=== PATIENT | female | born 1975 | race Caucasian/White ===

== ENCOUNTER 2017-05-15 16:21 | Emergency (ER) | payer BC ==
[2017-05-15] MEDS ORDERED: HYDROmorphone 0.5 MG/0.5 ML SYRINGE IVPUSH ONE (17:24)
[2017-05-15] MEDS ORDERED: Ondansetron 4 MG/2 ML SDV IVPUSH ONE (17:24)
[2017-05-15] MEDS ORDERED: Sodium Chloride 0.9% 1,000 ML IV ONE (17:24)
--- NOTE | 2017-05-15 17:25 | EDM.PDOC ---
ED HPI GENERAL MEDICAL PROBLEM - General Chief Complaint: Abdominal Pain Stated Complaint: INTENSE ABDOMINAL PAIN Time Seen by Provider: 05/15/17 17:24 Source of Information: Reports: Patient - History of Present Illness INITIAL COMMENTS - FREE TEXT/NARRATIVE: Patient is sent here today from the clinic for acute epigastric pain since earlier today. Patient states she does have chronic heartburn but this is nothing like her typical heartburn. She denies any chest pain. She does have some nausea, denies any vomiting or diarrhea. Patient denies any change in her diet. Bowel movements have been regular, she did have one today. Patient notes that she is currently also being treated for hypertriglyceridemia. She drinks alcohol one or 2 times a week 2 or 3 drinks at a sitting. She reports a fairly healthy diet, she does have very limited fatty and fried foods due to her elevated triglycerides. Abdominal Pain Score (Numeric/FACES): 5 - Related Data Allergies Allergy/AdvReac Type Severity Reaction Status Date / Time NSAIDS (Non-Steroidal Allergy Itching Verified 05/15/17 16:34 Anti-Inflamma Sulfa (Sulfonamide Allergy Rash Verified 05/15/17 16:34 Antibiotics) Home Meds: Home Meds Gemfibrozil [Lopid] 600 mg PO BIDAC 05/15/17 [History] hydrOXYzine HCl [Atarax] 10 mg PO DAILY 05/15/17 [History] traMADol [Ultram] 50 mg PO Q6H PRN 05/15/17 [History] Past Medical History Cardiovascular History: Reports: High Cholesterol, Hypertension Social & Family History - Tobacco Use Smoking Status *Q: Current Every Day Smoker Years of Tobacco use: 25 Packs/Tins Daily: 0.5 Second Hand Smoke Exposure: No - Caffeine Use Caffeine Use: Reports: Coffee - Alcohol Use Days Per Week of Alcohol Use: 7 Number of Drinks Per Day: 2 Total Drinks Per Week: 14 - Recreational Drug Use Recreational Drug Use: No ED ROS GENERAL - Review of Systems Review Of Systems: See Below Constitutional: Reports: Decreased Appetite. Denies: Fever, Chills, Malaise, Weakness, Fatigue HEENT: Reports: No Symptoms Respiratory: Reports: No Symptoms Cardiovascular: Reports: No Symptoms GI/Abdominal: Reports: Abdominal Pain, Decreased Appetite. Denies: Anorexia, Black Stool, Bloody Stool, Diarrhea, Nausea : Reports: No Symptoms Musculoskeletal: Reports: No Symptoms Skin: Reports: No Symptoms ED EXAM, GI/ABD - Physical Exam Exam: See Below Exam Limited By: Altered Mental Status General Appearance: Alert, WD/WN, No Apparent Distress Throat/Mouth: Normal Inspection, Normal Oropharynx Head: Atraumatic, Normocephalic Neck: Normal Inspection, Supple, Non-Tender Respiratory/Chest: No Respiratory Distress, Lungs Clear, Normal Breath Sounds Cardiovascular: Regular Rate, Rhythm, No Murmur GI/Abdominal Exam: Normal Bowel Sounds, Soft, Tender (Moderate epigastric tenderness), Other (Negative snider sign) Neurological: Alert, Oriented, CN II-XII Intact Skin Exam: Warm, Dry, Intact EKG INTERPRETATION EKG Date: 05/15/17 Time: 17:50 Rhythm: NSR Rate (Beats/Min): 95 Course - Vital Signs Last Recorded V/S: Last Vital Signs Temp 97.9 F 05/15/17 16:31 Pulse 86 05/15/17 18:47 Resp 18 05/15/17 18:47 BP 139/86 05/15/17 18:47 Pulse Ox 95 05/15/17 18:47 - Orders/Labs/Meds Orders: Active Orders 24 hr Category Date Time Status EKG 12 Lead [EKG Documentation Completion] [RC] STAT Care 05/15/17 17:24 Active Labs: Laboratory Tests 05/15/17 05/15/17 05/15/17 Range/Units 17:35 17:35 17:35 WBC 10.89 H (3.98-10.04) K/mm3 RBC 4.50 (3.98-5.22) M/mm3 Hgb 14.7 (11.2-15.7) gm/L Hct 43.5 (34.1-44.9) % MCV 96.7 H (79.4-94.8) fl MCH 32.7 H (25.6-32.2) pg MCHC 33.8 (32.2-35.5) g/dl RDW Std Deviation 44.9 (36.4-46.3) fL Plt Count 238 (182-369) K/mm3 MPV 9.9 (9.4-12.3) fl Neutrophils % (Manual) 80 H (40-60) % Band Neutrophils % 0 (0-10) % Lymphocytes % (Manual) 16 L (20-40) % Atypical Lymphs % 0 % Monocytes % (Manual) 3 (2-10) % Eosinophils % (Manual) 0 L (0.7-5.8) % Basophils % (Manual) 1 (0.1-1.2) Platelet Estimate Adequate Plt Morphology Comment Normal RBC Morph Comment Normal Sodium 136 (136-145) mEq/L Potassium 4.0 (3.5-5.1) mEq/L Chloride 100 (98-107) mEq/L Carbon Dioxide 26 (21-32) mEq/L Anion Gap 14.0 (5-15) BUN 13 (7-18) mg/dL Creatinine 0.6 (0.55-1.02) mg/dL Est Cr Clr Drug Dosing 98.58 mL/min Estimated GFR (MDRD) > 60 (>60) mL/min BUN/Creatinine Ratio 21.7 H (14-18) Glucose 97 (74-106) mg/dL Calcium 9.2 (8.5-10.1) mg/dL Total Bilirubin 0.2 (0.2-1.0) mg/dL AST 19 (15-37) U/L ALT 23 (14-59) U/L Alkaline Phosphatase 73 (46-116) U/L Troponin I < 0.017 (0.00-0.056) ng/mL C-Reactive Protein < 0.2 (<1.0) mg/dL Total Protein 7.5 (6.4-8.2) g/dl Albumin 3.7 (3.4-5.0) g/dl Globulin 3.8 gm/dL Albumin/Globulin Ratio 1.0 (1-2) Lipase 136 (73-393) U/L Urine Color (Yellow) Urine Appearance (Clear) Urine pH (5.0-8.0) Ur Specific [place] (1.005-1.030) Urine Protein (Negative) Urine Glucose (UA) (Negative) Urine Ketones (Negative) Urine Occult Blood (Negative) Urine Nitrite (Negative) Urine Bilirubin (Negative) Urine Urobilinogen (0.2-1.0) Ur Leukocyte Esterase (Negative) Urine RBC (0-5) /hpf Urine WBC (0-5) /hpf Ur Epithelial Cells (0-5) /hpf Urine Bacteria (FEW) /hpf Urine Mucus (FEW) /hpf H. pylori IgG Antibody Negative (NEGATIVE) 05/15/17 Range/Units 18:50 WBC (3.98-10.04) K/mm3 RBC (3.98-5.22) M/mm3 Hgb (11.2-15.7) gm/L Hct (34.1-44.9) % MCV (79.4-94.8) fl MCH (25.6-32.2) pg MCHC (32.2-35.5) g/dl RDW Std Deviation (36.4-46.3) fL Plt Count (182-369) K/mm3 MPV (9.4-12.3) fl Neutrophils % (Manual) (40-60) % Band Neutrophils % (0-10) % Lymphocytes % (Manual) (20-40) % Atypical Lymphs % % Monocytes % (Manual) (2-10) % Eosinophils % (Manual) (0.7-5.8) % Basophils % (Manual) (0.1-1.2) Platelet Estimate Plt Morphology Comment RBC Morph Comment Sodium (136-145) mEq/L Potassium (3.5-5.1) mEq/L Chloride (98-107) mEq/L Carbon Dioxide (21-32) mEq/L Anion Gap (5-15) BUN (7-18) mg/dL Creatinine (0.55-1.02) mg/dL Est Cr Clr Drug Dosing mL/min Estimated GFR (MDRD) (>60) mL/min BUN/Creatinine Ratio (14-18) Glucose (74-106) mg/dL Calcium (8.5-10.1) mg/dL Total Bilirubin (0.2-1.0) mg/dL AST (15-37) U/L ALT (14-59) U/L Alkaline Phosphatase (46-116) U/L Troponin I (0.00-0.056) ng/mL C-Reactive Protein (<1.0) mg/dL Total Protein (6.4-8.2) g/dl Albumin (3.4-5.0) g/dl Globulin gm/dL Albumin/Globulin Ratio (1-2) Lipase (73-393) U/L Urine Color Light yellow (Yellow) Urine Appearance Clear (Clear) Urine pH 6.5 (5.0-8.0) Ur Specific [place] 1.020 (1.005-1.030) Urine Protein Negative (Negative) Urine Glucose (UA) Negative (Negative) Urine Ketones Negative (Negative) Urine Occult Blood Negative (Negative) Urine Nitrite Negative (Negative) Urine Bilirubin Negative (Negative) Urine Urobilinogen 0.2 (0.2-1.0) Ur Leukocyte Esterase Negative (Negative) Urine RBC 0-5 (0-5) /hpf Urine WBC 0-5 (0-5) /hpf Ur Epithelial Cells 5-10 H (0-5) /hpf Urine Bacteria Not seen (FEW) /hpf Urine Mucus Not seen (FEW) /hpf H. pylori IgG Antibody (NEGATIVE) Meds: Medications Discontinued Medications Generic Name Dose Route Start Last Admin Trade Name Freq PRN Reason Stop Dose Admin Al Hydroxide/Mg Hydroxide 30 0 ml 05/15/17 19:10 05/15/17 19:19 ml/ Lidocaine HCl 15 ml PO 05/15/17 19:11 45 ml ONETIME ONE Administration Hydromorphone HCl 0.5 mg 05/15/17 17:24 05/15/17 17:50 Dilaudid IVPUSH 05/15/17 17:25 0.5 mg ONETIME ONE Administration Sodium Chloride 1,000 mls @ 999 mls/hr 05/15/17 17:24 05/15/17 17:52 Normal Saline IV 05/15/17 18:24 999 mls/hr ONETIME ONE Administration Ondansetron HCl 4 mg 05/15/17 17:24 05/15/17 17:48 Zofran IVPUSH 05/15/17 17:25 4 mg ONETIME ONE Administration - Re-Assessments/Exams Free Text/Narrative Re-Assessment/Exam: Patient had relief of nausea with Zofran, she actually had more significant improvement with the GI cocktail. WBC is elevated at 10,890 with 80% neutrophils and no bands. CRP is <0.2. Liver enzymes and bilirubin normal. Lipase 136. Negative troponin, negative H. pylori. Not acute abdomen, patient does not have any right upper quadrant tenderness and has negative Snider sign. With her significant response to the GI cocktail will have her start over-the- counter Prilosec 20 mg daily. She is to follow-up with her primary provider, advised patient that she certainly can return to emergency room if needed. 05/15/17 19:52 Departure - Departure Time of Disposition: 19:50 Disposition: Home, Self-Care 01 Condition: Good Clinical Impression: Epigastric abdominal pain - Discharge Information Referrals: Samina Kyle PA-C [Primary Care Provider] - Forms: ED Department Discharge Additional Instructions: [place] diet, no spicy/citrus foods for now. Start OTC prilosec 20mg daily before breakfast. Follow-up with your primary provider in 1-2 weeks or sooner if symptoms not improving. Certainly return to the ER if any worsening. - My Orders Last 24 Hours: My Active Orders 05/15/17 17:24 EKG 12 Lead [EKG Documentation Completion] [RC] STAT - Assessment/Plan Last 24 Hours: My Active Orders 05/15/17 17:24 EKG 12 Lead [EKG Documentation Completion] [RC] STAT
[2017-05-15 18:48] VITALS: BP 139/86
[2017-05-15] MEDS ORDERED: Alum Hydrox/Mag Hydrox/Simeth 30 ML, Lidocaine 2% 15 ML PO ONE ×2 (19:10)
== END 2017-05-15 20:10 | disposition home or self-care (01) ==
LOC: JD.ED 16:21
DX: R10.13 Epigastric pain (principal); F17.210 Nicotine dependence, cigarettes, uncomplicated; Z88.2 Allergy status to sulfonamides; Z88.8 Allergy status to other drugs, medicaments and biological substances
CPT/HCPCS: 36415; 80053; 81001; 83690; 84484; 85025; 86140; 86677; 93005; 96361; 96374; 96375; 99284; A9270; J1170; J2405; J7040

== ENCOUNTER 2021-05-31 08:49 | Day surgery (SDC) | payer OTHER ==
[~2021-05-31 08:49] MED LIST: Acetaminophen 325 MG Tab PO SCH; Lactated Ringers 1,000 ML IV SCH; Lidocaine 1%/Sod Bicarbonate in NS 8.4% 1 ML Syringe IDERM PRN; Morphine 8 MG, EPINEPHrine 0.3 MG, Cefuroxime 750 MG, Sodium Chloride 0.9% 7.9 ML PRN; Pregabalin 25 MG Cap PO SCH; Sodium Chloride 0.9% 10 ML Syringe FLUSH PRN; Sodium Chloride 0.9% 10 ML Syringe FLUSH SCH; oxyCODONE ER 10 MG TAB.ER PO SCH
[2021-05-31] MEDS ORDERED: Vancomycin 1 GM SDV ONE (09:32)
[2021-05-31] MEDS ORDERED: Midazolam 1 MG/ML 2 ML SDV ONE (10:00)
[2021-05-31] MEDS ORDERED: Propofol 200 MG/20 ML SDV ONE (10:30)
[2021-05-31] MEDS ORDERED: Ondansetron 4 MG/2 ML SDV IVPUSH PRN (11:14)
[2021-05-31] MEDS ORDERED: fentaNYL 100 MCG/2 ML SDV IVPUSH PRN (11:14)
[2021-05-31] MEDS ORDERED: HYDROmorphone 0.5 MG/0.5 ML Syringe IVPUSH PRN (11:14)
[2021-05-31] MEDS ORDERED: Lactated Ringers 1,000 ML ONE (12:15)
[2021-05-31] MEDS ORDERED: EPINEPHrine 1 MG/ML SDV ONE (12:44)
[2021-05-31] MEDS ORDERED: Ropivacaine 0.5% 5 MG/ML 30 ML SDV ONE (12:44)
[2021-05-31] MEDS ORDERED: Cyclobenzaprine 10 MG Tab PO ONE (15:15)
[2021-05-31] MEDS ORDERED: oxyCODONE 5 MG Tab PO ONE (15:15)
[2021-05-31 19:01] VITALS: BP 128/78; PULSE 78
== END 2021-05-31 15:40 | disposition home or self-care (01) ==
LOC: JD.SDS 08:49
PROVIDERS: ATTEND Orthopaedic Surgery
DX: M17.11 Unilateral primary osteoarthritis, right knee (principal); E78.00 Pure hypercholesterolemia, unspecified; I10 Essential (primary) hypertension; H54.7 Unspecified visual loss; F17.210 Nicotine dependence, cigarettes, uncomplicated; K21.9 Gastro-esophageal reflux disease without esophagitis; Z88.1 Allergy status to other antibiotic agents; Z88.6 Allergy status to analgesic agent; Z88.2 Allergy status to sulfonamides; E66.9 Obesity, unspecified; Z68.41 Body mass index [BMI] 40.0-44.9, adult; Z79.899 Other long term (current) drug therapy
CPT/HCPCS: 27447; 73560; 97116; 97161; A9270; C1713; C1776; J0171; J0697; J2250; J2270; J2370; J2704; J2795; J3370; J7120; 01402; 64447; 76942

== ENCOUNTER 2021-09-20 07:09 | Day surgery (SDC) | payer OTHER ==
[~2021-09-20 07:09] MED LIST changes: +EPINEPHrine 1 MG/ML SDV ONE; +Lactated Ringers 1,000 ML ONE; +Lidocaine 1% 6 ML ONE; +Morphine 8 MG, EPINEPHrine 0.3 MG, Cefuroxime 750 MG, Ketorolac 30 MG, Sodium Chloride ... PRN; -Morphine 8 MG, EPINEPHrine 0.3 MG, Cefuroxime 750 MG, Sodium Chloride 0.9% 7.9 ML PRN; +Ondansetron 4 MG/2 ML SDV ONE; +Phenylephrine 1% 10 MG/ML SDV ONE; +Propofol 200 MG/20 ML SDV ONE; +Ropivacaine 0.5% 5 MG/ML 30 ML SDV ONE; +Vancomycin 1 GM SDV ONE; +ceFAZolin 2 GM Vial ONE; +fentaNYL 100 MCG/2 ML SDV ONE
[2021-09-20] MEDS ORDERED: Ketamine 500 mg/10 ML MDV ONE (07:10)
[2021-09-20] MEDS ORDERED: Midazolam 1 MG/ML 2 ML SDV ONE ×2 (07:10→07:55)
[2021-09-20] MEDS ORDERED: Morphine 8 MG, EPINEPHrine 0.3 MG, Cefuroxime 750 MG, Sodium Chloride 0.9% 7.9 ML PRN ×4 (07:25)
[2021-09-20] MEDS ORDERED: fentaNYL 100 MCG/2 ML SDV IVPUSH PRN (08:29)
[2021-09-20] MEDS ORDERED: Phenylephrine 1% 10 MG/ML SDV IVPUSH PRN (08:29)
[2021-09-20] MEDS ORDERED: ePHEDrine 50 MG/ML SDV IVPUSH PRN (08:29)
[2021-09-20] MEDS ORDERED: HYDROmorphone 0.5 MG/0.5 ML Syringe IVPUSH PRN (08:29)
[2021-09-20] MEDS ORDERED: Ondansetron 4 MG/2 ML SDV IVPUSH PRN (08:29)
[2021-09-20] MEDS ORDERED: Albuterol 0.083% 2.5 MG/3 ML Neb Soln NEB PRN (08:29)
[2021-09-20] MEDS ORDERED: diphenhydrAMINE 50 MG/ML SDV IVPUSH PRN (08:29)
[2021-09-20] MEDS ORDERED: Midazolam 1 MG/ML 2 ML SDV IVPUSH PRN (08:29)
[2021-09-20] MEDS ORDERED: Propofol 200 MG/20 ML SDV ONE (08:57)
[2021-09-20] MEDS: oxyCODONE 5 MG Tab PO SCH ×2 (11:21→12:52)
[2021-09-20 12:27] VITALS: BP 101/70
[2021-09-20] MEDS ORDERED: Cyclobenzaprine 10 MG Tab PO PRN (12:36)
[2021-09-20] MEDS ORDERED: oxyCODONE 5 MG Tab PO PRN (12:36)
[2021-09-20 14:25] VITALS: PULSE 77
== END 2021-09-20 13:50 | disposition home or self-care (01) ==
LOC: JD.SDS 07:09
PROVIDERS: ATTEND Orthopaedic Surgery
DX: M17.11 Unilateral primary osteoarthritis, right knee (principal); F32.A Depression, unspecified; F17.210 Nicotine dependence, cigarettes, uncomplicated; K21.9 Gastro-esophageal reflux disease without esophagitis; I10 Essential (primary) hypertension; G47.00 Insomnia, unspecified; G62.9 Polyneuropathy, unspecified; E78.00 Pure hypercholesterolemia, unspecified; E66.9 Obesity, unspecified; E55.9 Vitamin D deficiency, unspecified; Z88.8 Allergy status to other drugs, medicaments and biological substances; Z88.2 Allergy status to sulfonamides; Z79.899 Other long term (current) drug therapy; Z88.1 Allergy status to other antibiotic agents; Z98.890 Other specified postprocedural states; Z68.37 Body mass index [BMI] 37.0-37.9, adult
CPT/HCPCS: 0055T; 27447; 73560; 97116; 97161; A9270; C1713; C1776; J0171; J0690; J0697; J1170; J2250; J2270; J2370; J2405; J2704; J2795; J3010; J3370; J3490; J7120; 01402; 64450; 76942

== ENCOUNTER 2022-06-30 15:58 | Emergency (ER) | payer OTHER, BC ==
[2022-06-30 16:16] VITALS: BP 127/77; PULSE 96
[2022-06-30] MEDS ORDERED: Orphenadrine 100 MG Tab.ER PO STA (16:57)
[2022-06-30] MEDS ORDERED: Acetaminophen/HYDROcodone 325-5 MG Tab PO ONE (16:57)
== END 2022-06-30 17:23 | disposition home or self-care (01) ==
LOC: JD.ED 15:58
DX: S39.012A Strain of muscle, fascia and tendon of lower back, initial encounter (principal); R07.81 Pleurodynia; M25.562 Pain in left knee; E78.00 Pure hypercholesterolemia, unspecified; E66.9 Obesity, unspecified; Z88.1 Allergy status to other antibiotic agents; Z88.2 Allergy status to sulfonamides; Z68.35 Body mass index [BMI] 35.0-35.9, adult; Z88.8 Allergy status to other drugs, medicaments and biological substances; Z79.899 Other long term (current) drug therapy; Z79.01 Long term (current) use of anticoagulants; Z72.0 Tobacco use; V86.55XA Driver of 3- or 4- wheeled all-terrain vehicle (ATV) injured in nontraffic accident, initial encounter; Y92.410 Unspecified street and highway as the place of occurrence of the external cause
CPT/HCPCS: 99283; A9270